=== PATIENT | male | born 1985 | race American Indian/Alaskan Native ===

== ENCOUNTER 2019-12-02 05:36 | Emergency (ER) | payer MEDICAID ==
[2019-12-02 05:42] VITALS: BP 124/79
--- NOTE | 2019-12-02 06:43 | XRay Report ---
LEFT WRIST 2 VIEWS 0606 INDICATION: fall with pain and swelling COMPARISON: None available. FINDINGS: AP and oblique views were obtained. 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 I do not have a lateral view. This is a limited study. Surgical changes are seen with plate and screws in the distal radius. Mild radiocarpal arthritic damon ges are noted. No obvious acute fractures or dislocations are seen. Signer Name: Gaetano Gore MD Signed: 12/02/2019 6:39 AM Workstation Name: [id number]
[2019-12-02] MEDS ORDERED: HYDROcodone/ACETAMINOPHEN 5-325 MG TAB PO ONE (07:50)
--- NOTE | 2019-12-02 07:55 | Emergency Department Report ---
ED Upper Extremity Inj HPI - General Chief Complaint: Extremity Injury, Upper Stated Complaint: LEFT WRIST INJURY Time Seen by Provider: 12/02/19 07:14 Source: patient, EMS Mode of arrival: Wheelchair Limitations: Other - History of Present Illness Initial Comments: This is a 34-year-old male nontoxic, well nourished in appearance, no acute signs of distress presents to the ED with c/o of left wrist pain 1 day. Patient stated that he had a trip and fall. Patient denies any other trauma. Patient denies any numbness, tingling, fever, chills, nausea, vomiting, chest pain, shortness of breath, headache, stiff neck. Patient denies any joint swelling or joint redness. Patient stated has some decreased range of motion due to pain. Patient denies any allergies or significant past medical history. MD Complaint: Injury to:: left, wrist -: days(s) Other Extremity Injury: Wrist: Left Other Injuries: none Severity scale (0 -10): 8 Improves With: immobilization Worsens With: movement of extremity Context: fall Associated Symptoms: denies other symptoms. denies: weakness, numbness, neck pain, suspects foreign body, nausea/vomiting, heard/felt popping sensat - Related Data Previous Rx's Medication Instructions Recorded Last Taken Type Acetaminophen/Codeine [Tylenol 1 tab PO Q6H PRN #12 tab 12/02/19 Unknown Rx /Codeine # 3 tab] Allergies Allergy/AdvReac Type Severity Reaction Status Date / Time No Known Allergies Allergy Verified 12/02/19 05:40 ED Review of Systems ROS: Stated complaint: LEFT WRIST INJURY Other details as noted in HPI Constitutional: denies: chills, fever Eyes: denies: eye pain, eye discharge, vision change ENT: denies: ear pain, throat pain Respiratory: denies: cough, shortness of breath, wheezing Cardiovascular: denies: chest pain, palpitations Endocrine: no symptoms reported Gastrointestinal: denies: abdominal pain, nausea, diarrhea Genitourinary: denies: urgency, dysuria Musculoskeletal: denies: back pain, joint swelling, arthralgia Skin: denies: rash, lesions Neurological: denies: headache, weakness, paresthesias Psychiatric: denies: anxiety, depression Hematological/Lymphatic: denies: easy bleeding, easy bruising ED Past Medical Hx - Past Medical History Previous Medical History?: Yes Additional medical history: [place] - Surgical History Past Surgical History?: Yes Additional Surgical History: left wrist - Social History Smoking Status: Current Every Day Smoker Substance Use Type: Alcohol - Medications Home Medications: Home Medications Medication Instructions Recorded Confirmed Last Taken Type Acetaminophen/Codeine [Tylenol 1 tab PO Q6H PRN #12 tab 12/02/19 Unknown Rx /Codeine # 3 tab] ED Physical Exam - General Limitations: Other General appearance: alert, in no apparent distress - Head Head exam: Present: atraumatic, normocephalic - Extremities Exam Extremities exam: Present: normal inspection, full ROM, tenderness, normal capillary refill. Absent: joint swelling - Expanded Upper Extremity Exam Left General: Present: normal inspection Shoulder Exam: Present: normal inspection, full ROM. Absent: tenderness, swelling Upper Arm exam: Present: normal inspection, full ROM. Absent: tenderness, swelling Elbow exam: Present: normal inspection, full ROM. Absent: tenderness, swelling, abrasion, laceration, ecchymosis, deformity, crepidus, dislocation, erythema, effusion, pain w/ pronation/supination, tenderness over radial head Forearm Wrist exam: Present: normal inspection, full ROM, tenderness. Absent: swelling, abrasion, laceration, ecchymosis, deformity, crepidus, dislocation, erythema, tenderness over anatomical snuff box, pain with axial thumb loading Hand Wrist exam: Present: normal inspection, full ROM. Absent: tenderness, swelling Vascular: Present: vascular compromise, normal capillary refill - Back Exam Back exam: Present: normal inspection, full ROM. Absent: tenderness, CVA tenderness (R), CVA tenderness (L), muscle spasm, paraspinal tenderness, vertebral tenderness, rash noted - Neurological Exam Neurological exam: Present: alert, oriented X3, normal gait - Psychiatric Psychiatric exam: Present: normal affect, normal mood - Skin Skin exam: Present: warm, dry, intact, normal color. Absent: rash ED Course Vital Signs 12/02/19 05:41 Temperature 97.3 F L Pulse Rate 99 H Respiratory 18 Rate Blood Pressure 124/79 O2 Sat by Pulse 99 Oximetry - Reevaluation(s) Reevaluation #1: 12/02/19 07:53 Patient is speaking in full sentences with no signs of distress noted. ED Medical Decision Making - Medical Decision Making This is a 34-year-old male that presents with left wrist strain. Patient is stable and was examined by me. I referred patient to an orthopedic doctor for further evaluation for possible MRI. X-ray has been obtained and dictated by the radiologist. Patient is notified of the x-ray report with noted by the patient. Patient does have normal ROM with some tenderness and no joint swelling. No ecchymosis. no joint redness or swelling. Not warm to touch. No signs of cellulites present. Patient received a wrist immobilize. Patient was instructed to RICE therapy. Patient received [place] for pain and stated family member will drive patient home after discharge due to possible drowsiness. Patient is discharged with Tylenol #3. At time of discharge, the patient does not seem toxic or ill in appearance. No acute signs of distress noted. Patient agrees to discharge treatment plan of care. No further questions noted by the patient. Critical care attestation.: If time is entered above; I have spent that time in minutes in the direct care of this critically ill patient, excluding procedure time. ED Disposition Clinical Impression: Strain of left wrist Qualifiers: Encounter type: initial encounter Qualified Code(s): S66.912A - Strain of unspecified muscle, fascia and tendon at wrist and hand level, left hand, initial encounter Disposition: DC-01 TO HOME OR SELFCARE Is pt being admited?: No Does the pt Need Aspirin: No Condition: Stable Instructions: Acetaminophen/Codeine (By mouth), RICE Therapy (ED), Wrist Injury (ED) Additional Instructions: Follow-up with a orthopedic doctor in 3-5 days or if symptoms worsen and continue return to emergency room as soon as possible. Do not operate any machinery while taking Tylenol with codeine as this may cause drowsiness. Prescriptions: Acetaminophen/Codeine [Tylenol /Codeine # 3 tab] 1 tab PO Q6H PRN #12 tab PRN Reason: Pain , Severe (7-10) Referrals: HOWARD EDWARDS MD [Primary Care Provider] - 3-5 Days SEVEN SUN MD [Staff Physician] - 3-5 Days [facility] [Provider Group] - 3-5 Days
== END 2019-12-02 08:19 | disposition home or self-care (01) ==
LOC: ED 05:36
DX: S66.912A Strain of unspecified muscle, fascia and tendon at wrist and hand level, left hand, initial encounter (principal); F17.200 Nicotine dependence, unspecified, uncomplicated; W01.0XXA Fall on same level from slipping, tripping and stumbling without subsequent striking against object, initial encounter; Y93.89 Activity, other specified; Y92.89 Other specified places as the place of occurrence of the external cause; Y99.8 Other external cause status